=== PATIENT | female | born 1930 | race Caucasian/White ===

== ENCOUNTER 2020-03-04 05:49 | Inpatient (IN) | payer MEDICARE ==
[2020-02-27 16:37] LABS: BASOPHILS # (AUTO) 0.1 X10'3 (0-0.2); BASOPHILS % (AUTO) 1.4 % (0-1); EOSINOPHILS # (AUTO) 0.4 X10'3 (0-0.9); EOSINOPHILS % (AUTO) 6.6 % (0-6); LYMPHOCYTES # (AUTO) 1.7 X10'3 (1.1-4.8); LYMPHOCYTES % (AUTO) 26.7 % (21-51); MEAN CORPUSCULAR HEMOGLOBIN 31.1 PG (27.0-31.0); MEAN CORPUSCULAR HGB CONC 33.4 g/dL (33.0-36.5); MEAN CORPUSCULAR VOLUME 93.3 FL (78-98); MEAN PLATELET VOLUME 8.7 FL (7.4-10.4); MONOCYTES # (AUTO) 0.4 X10'3 (0-0.9); MONOCYTES % (AUTO) 6.9 % (2-12); NEUTROPHILS # (AUTO) 3.6 X10'3 (1.8-7.7); NEUTROPHILS % (AUTO) 58.4 % (42-75); PRE OP HEMOGLOBIN 12.7 g/dL (12.0-16.0); PRE OP PLATELET COUNT 375 X10'3 (140-440); RED BLOOD COUNT 4.07 X10'6 (4.20-5.60); RED CELL DISTRIBUTION WIDTH 14.6 % (11.5-14.5)
[2020-02-27 16:55] LABS: PRE OP INR 1.3 INR; PRE OP PROTIME 13.5 SECONDS (9.0-12.0)
[2020-02-27 17:02] LABS: HEMOGLOBIN A1C 6.3 % (4.5-6.2)
[2020-02-27 17:09] LABS: ALBUMIN 3.6 G/DL (3.4-5.0); ALBUMIN/GLOBULIN RATIO 1.2 (1.1-1.5); ALKALINE PHOSPHATASE 37 IU/L (46-116); BLOOD UREA NITROGEN 17 MG/DL (7-18); BUN/CREATININE RATIO 17.9 (6.6-38.0); CALCIUM 8.8 MG/DL (8.5-10.1); CHLORIDE 106 MMOL/L (99-107); CREATININE 0.95 MG/DL (0.40-0.90); PRE OP ALT 17 U/L (30-65); PRE OP ANION GAP 11 (8-16); PRE OP AST 16 U/L (10-37); PRE OP BILIRUB, TOTAL 0.5 MG/DL (0.0-1.0); PRE OP GLUCOSE 131 MG/DL (70-104); PRE OP POTASSIUM 3.7 MMOL/L (3.4-5.1); PRE OP SODIUM 147 MMOL/L (135-145); TOTAL CARBON DIOXIDE 30.1 MMOL/L (24-32); TOTAL PROTEIN 6.6 G/DL (6.4-8.2); eGFR 56 ML/MIN
[~2020-03-04] VITALS: Ht 154.9 cm; Wt 83.5 kg
[2020-03-04] VITALS (17 sets, daily range): BP systolic 95–145; BP diastolic 36–78
[~2020-03-04 05:49] MED LIST: ACET-1025 PO; ALBU8.5H8 IH; DOCU-267 PO; LEVO50TA8 PO; RIVA15TA PO; acetaminophen 325mg tablet PO ONE; ceFAZolin 2gm in dextrose, iso 50 ML IV ONE; celeCOXIB 100mg capsule PO ONE; famotidine 20mg tablet PO ONE; gabapentin 300mg capsule PO ONE; metoclopramide 5 mg/ml inj IV ONE; oxyCODONE SR 10mg (sust. release) tab -2 tabs (20mg) PO ONE; ringers solution, lacted 1,000 ML IV SCH; tranexamic acid inj. 1,000 MG in normal saline 100 ML IV ONE; vancomycin 1,500 MG in NS 500ml IV soln IV ONE
[2020-03-04] MEDS ORDERED: LIDOcaine 1% (10mg/ml) 2ml vial ONE (06:22)
[2020-03-04] MEDS ORDERED: ringers solution, lacted 1,000 ML IV SCH (06:47)
[2020-03-04] MEDS ORDERED: fentaNYL/PF 50MCG/1 ML 2ML syringe ONE (06:50)
[2020-03-04] MEDS ORDERED: ondansetron/PF 4mg/2ml inj IV PRN ×2 (06:50→07:05)
[2020-03-04] MEDS ORDERED: morphine 4 MG/ML inj SYRINge IV PRN (06:50)
[2020-03-04] MEDS ORDERED: enalaprilat dihydrate 2.5mg/2ml vial IV PRN (06:50)
[2020-03-04] MEDS ORDERED: MIDAZolam 1mg/ml 10ml vial ONE (06:50)
[2020-03-04] MEDS ORDERED: hydrALAZINE 20mg/ml inj. IV PRN (06:50)
[2020-03-04] MEDS ORDERED: fentaNYL/PF 50MCG/1 ML 2ML syringe IV PRN ×2 (06:50)
[2020-03-04] MEDS ORDERED: morphine 2 MG/ML inj. syringe IV PRN (06:50)
[2020-03-04] MEDS ORDERED: phenylephrine 10mg/ml inj. ONE (07:04)
[2020-03-04] MEDS ORDERED: dexamethasone sod phosphate 10mg/ml inj ONE (07:04)
[2020-03-04] MEDS ORDERED: BUPIVAcaine/dex-water/PF 7.5 mg/ml 2ml ampul ONE (07:04)
[2020-03-04] MEDS ORDERED: HYDROmorphone inj. 0.5 MG/0.5 ML DISP.SYRIN IV PRN (07:05)
[2020-03-04] MEDS ORDERED: diphenhydrAMINE 25mg capsule PO PRN ×2 (07:05)
[2020-03-04] MEDS ORDERED: bisacodyl 10mg suppository rectal RC PRN (07:05)
[2020-03-04] MEDS ORDERED: HYDROcodone/acetaminophen 10/325mg tab PO PRN (07:05)
[2020-03-04] MEDS ORDERED: HYDROmorphone 1 mg/ml syringe IV PRN (07:05)
[2020-03-04] MEDS ORDERED: acetaminophen 325mg tablet PO PRN (07:05)
[2020-03-04] MEDS ORDERED: albumin (Human) 5% 250ml 250 ML IV ONE ×4 (07:24→07:45)
[2020-03-04] MEDS ORDERED: cloNIDine hcl/PF 100mcg/ml inj IJ ONE (08:10)
[2020-03-04] MEDS ORDERED: ketorolac trometh. 30mg/ml inj. IM ONE (08:11)
[2020-03-04] MEDS ORDERED: ROPIVAcaine 0.5% (5mg/ml) 30ml vial IJ ONE (08:12)
--- NOTE | 2020-03-04 08:35 | NUR ---
Received from OR via BED , accompanied by Anesthesiologist DR FELIX and report given by Anesthesiolgist. PATIENT WAKING UP, DENIES PAIN, V/S WNL, NEUROVASCULAR CHECKS INTACT, 20G PIV LUE , ZEB DRESSING TO RIGHT HIP CDI W/ COLD POWDER PACK AND SENSATION T-10.
--- NOTE | 2020-03-04 09:14 | NUR ---
received report from ted glasgow
--- NOTE | 2020-03-04 09:25 | NUR ---
PATIENT A&OX4, DENIES PAIN, V/S WNL, NEUROVASCULAR CHECKS INTACT, 18G PIV LUE , ZEB DRESSING TO RIGHT HIP CDI W/ COLD POWDER PACK AND SENSATION T-11. . PATIENT TAKEN TO WITH ALL BELONGINGS AND HOOKED UP TO MONITORS IN ROOM AND REPORT GIVEN TO ESTIMATOR PRINTING WHO HAS TAKEN OVER PATIENT CARE.
[2020-03-04] MEDS: multivitamins, therapeutics tablet PO SCH (09:55)
[2020-03-04] MEDS: gabapentin 300mg capsule PO SCH ×3 (09:55→20:17)
[2020-03-04] MEDS: ascorbic acid 500mg tablet PO SCH ×2 (09:56→20:18)
[2020-03-04] MEDS ORDERED: TRANEXAMIC ACID IV ONE (11:30)
[2020-03-04] MEDS ORDERED: NORMAL SALINE IV ONE (11:30)
[2020-03-04] MEDS: cefazolin/dext.iso 2gm/50ml 50 ML IV SCH (15:45)
[2020-03-04] MEDS ORDERED: cefazolin/dext.iso 2gm/100ml 100 ML IV SCH (16:00)
[2020-03-04] MEDS ORDERED: VANCOMYCIN 1,500MG inj. 1,500 MG in normal saline 500ml IV soln 500 ML IV SCH (18:00)
--- NOTE | 2020-03-04 18:15 | NUR ---
RECEIVED REPORT FROM ODIN SANTOS AND ASSUMED PATIENT CARE
--- NOTE | 2020-03-04 18:16 | NUR ---
gave report to ted jerez
[2020-03-04] MEDS: HYDROcodone/acetaminophen 10/325mg tab PO PRN (20:15)
[2020-03-04] MEDS: potassium cl 20mEq in 1/2 NS 1,000 ML IV SCH ×3 (20:17→23:05)
[2020-03-04] MEDS: sennosides 8.6mg tablet PO SCH (20:18)
[2020-03-04] MEDS: rivaroxaban 15mg tablet PO SCH (20:18)
[2020-03-05] MEDS: cefazolin/dext.iso 2gm/50ml 50 ML IV SCH (00:08)
[2020-03-05] MEDS: HYDROcodone/acetaminophen 10/325mg tab PO PRN ×2 (01:39→05:26)
[2020-03-05 02:00] VITALS: BP 107/38
[2020-03-05 06:00] VITALS: BP 116/42
[2020-03-05] MEDS ORDERED: scopolamine 1.5mg patch.TD72 TD ONE (06:20)
[2020-03-05] MEDS: potassium cl 20mEq in 1/2 NS 1,000 ML IV SCH (07:05)
[2020-03-05 07:16] LABS: ANION GAP 6 (8-16); CHLORIDE 107 MMOL/L (99-107); POTASSIUM 4.5 MMOL/L (3.5-5.1); SODIUM 143 MMOL/L (135-145)
[2020-03-05] MEDS: ascorbic acid 500mg tablet PO SCH ×2 (07:23→19:29)
[2020-03-05] MEDS: traMADol 50MG tablet PO PRN ×3 (07:24→19:29)
[2020-03-05] MEDS: gabapentin 300mg capsule PO SCH ×3 (07:24→19:29)
[2020-03-05] MEDS: levoTHYROXINE 25mcg tablet PO SCH (07:25)
[2020-03-05] MEDS: multivitamins, therapeutics tablet PO SCH (07:25)
[2020-03-05 07:27] LABS: BASOPHILS % (AUTO) 0.4 % (0-1); EOSINOPHILS # (AUTO) 0.3 X10'3 (0-0.9); EOSINOPHILS % (AUTO) 4.5 % (0-6); HEMATOCRIT 31.9 % (35.0-45.0); HEMOGLOBIN 10.7 g/dl (12.0-16.0); LYMPHOCYTES # (AUTO) 0.9 X10'3 (1.1-4.8); LYMPHOCYTES % (AUTO) 15.7 % (21-51); MEAN CORPUSCULAR HEMOGLOBIN 31.7 PG (27.0-31.0); MEAN CORPUSCULAR HGB CONC 33.4 g/dL (33.0-36.5); MEAN PLATELET VOLUME 9.1 FL (7.4-10.4); MONOCYTES # (AUTO) 0.3 X10'3 (0-0.9); MONOCYTES % (AUTO) 4.8 % (2-12); NEUTROPHILS # (AUTO) 4.4 X10'3 (1.8-7.7); NEUTROPHILS % (AUTO) 74.6 % (42-75); PLATELET COUNT 286 X10'3 (140-440); RED BLOOD COUNT 3.36 X10'6 (4.20-5.60); RED CELL DISTRIBUTION WIDTH 14.6 % (11.5-14.5); WHITE BLOOD COUNT 5.9 X10'3 (4.5-11.0)
[2020-03-05 10:00] VITALS: BP 110/35
--- NOTE | 2020-03-05 12:37 | NUR ---
Joint replacement consult: Pt seen by CHRISTOPHER for written/verbal high protein ed w/ RD contact information provided. Pt declines additional protein needs at this time. Addendum: 03/05/20 at [address] Amended: Links added.
[2020-03-05 14:00] VITALS: BP 114/46
[2020-03-05 18:00] VITALS: BP 138/47
--- NOTE | 2020-03-05 18:13 | NUR ---
Problems reprioritized. Patient report given, questions answered & plan of care reviewed with Kristy SANTOS.
--- NOTE | 2020-03-05 18:15 | NUR ---
RECEIVED REPORT FROM EHRNÁN SANTOS AND ASSUMED PATIENT CARE
[2020-03-05] MEDS: sennosides 8.6mg tablet PO SCH (19:30)
[2020-03-05] MEDS: rivaroxaban 15mg tablet PO SCH (19:30)
[2020-03-06] MEDS: traMADol 50MG tablet PO PRN ×4 (05:31→23:13)
[2020-03-06 06:00] VITALS: BP 121/43
--- NOTE | 2020-03-06 06:02 | NUR ---
REPORT GIVEN TO HERNÁN SANTOS
[2020-03-06 06:46] LABS: BASOPHILS % (AUTO) 0.3 % (0-1); EOSINOPHILS # (AUTO) 0.4 X10'3 (0-0.9); EOSINOPHILS % (AUTO) 4.1 % (0-6); HEMOGLOBIN 11.3 g/dl (12.0-16.0); LYMPHOCYTES # (AUTO) 1.5 X10'3 (1.1-4.8); MEAN CORPUSCULAR HEMOGLOBIN 31.4 PG (27.0-31.0); MEAN CORPUSCULAR HGB CONC 33.2 g/dL (33.0-36.5); MEAN CORPUSCULAR VOLUME 94.7 FL (78-98); MEAN PLATELET VOLUME 9.4 FL (7.4-10.4); MONOCYTES # (AUTO) 0.6 X10'3 (0-0.9); MONOCYTES % (AUTO) 6.6 % (2-12); NEUTROPHILS # (AUTO) 6.8 X10'3 (1.8-7.7); PLATELET COUNT 353 X10'3 (140-440); RED BLOOD COUNT 3.59 X10'6 (4.20-5.60); RED CELL DISTRIBUTION WIDTH 14.7 % (11.5-14.5); WHITE BLOOD COUNT 9.3 X10'3 (4.5-11.0)
[2020-03-06] MEDS: levoTHYROXINE 25mcg tablet PO SCH (07:49)
[2020-03-06] MEDS: ascorbic acid 500mg tablet PO SCH ×2 (07:49→18:49)
[2020-03-06] MEDS: gabapentin 300mg capsule PO SCH ×3 (07:49→20:32)
[2020-03-06] MEDS: multivitamins, therapeutics tablet PO SCH (07:49)
[2020-03-06] MEDS ORDERED: docusate sod 100mg capsule PO ONE (07:55)
[2020-03-06 10:00] VITALS: BP 119/47
[2020-03-06 18:00] VITALS: BP 148/51
--- NOTE | 2020-03-06 18:28 | NUR ---
Problems reprioritized. Patient report given, questions answered & plan of care reviewed with Jesika SANTOS.
--- NOTE | 2020-03-06 18:33 | NUR ---
Patient in room ORTH[facility] 4021. I have received report from Eloina SANTOS and had the opportunity to ask questions and assume patient care.
[2020-03-06] MEDS: rivaroxaban 15mg tablet PO SCH (18:48)
[2020-03-06] MEDS: sennosides 8.6mg tablet PO SCH (20:32)
[2020-03-06] MEDS: magnesium hydroxide 30ml (MOM) UD suspension PO PRN (20:33)
[2020-03-06 22:00] VITALS: BP 117/52
[2020-03-07] MEDS: traMADol 50MG tablet PO PRN ×3 (04:19→18:34)
[2020-03-07 06:00] VITALS: BP 124/49
--- NOTE | 2020-03-07 06:29 | NUR ---
Problems reprioritized. Patient report given, questions answered & plan of care reviewed with Eloina SANTOS.
[2020-03-07 07:02] LABS: BASOPHILS % (AUTO) 0.6 % (0-1); EOSINOPHILS # (AUTO) 0.4 X10'3 (0-0.9); EOSINOPHILS % (AUTO) 5.8 % (0-6); HEMATOCRIT 30.2 % (35.0-45.0); HEMOGLOBIN 10.2 g/dl (12.0-16.0); LYMPHOCYTES # (AUTO) 1.4 X10'3 (1.1-4.8); LYMPHOCYTES % (AUTO) 21.5 % (21-51); MEAN CORPUSCULAR HEMOGLOBIN 32.2 PG (27.0-31.0); MEAN CORPUSCULAR VOLUME 94.9 FL (78-98); MEAN PLATELET VOLUME 9.3 FL (7.4-10.4); MONOCYTES # (AUTO) 0.5 X10'3 (0-0.9); MONOCYTES % (AUTO) 7.8 % (2-12); NEUTROPHILS # (AUTO) 4.3 X10'3 (1.8-7.7); NEUTROPHILS % (AUTO) 64.3 % (42-75); PLATELET COUNT 305 X10'3 (140-440); RED BLOOD COUNT 3.18 X10'6 (4.20-5.60); RED CELL DISTRIBUTION WIDTH 14.7 % (11.5-14.5); WHITE BLOOD COUNT 6.7 X10'3 (4.5-11.0)
[2020-03-07] MEDS: levoTHYROXINE 25mcg tablet PO SCH (07:08)
[2020-03-07] MEDS: gabapentin 300mg capsule PO SCH ×3 (07:10→19:46)
[2020-03-07] MEDS: ascorbic acid 500mg tablet PO SCH ×2 (07:10→19:46)
[2020-03-07] MEDS: multivitamins, therapeutics tablet PO SCH (07:10)
--- NOTE | 2020-03-07 09:17 | NUR ---
Problems reprioritized. Patient report given, questions answered & plan of care reviewed with Louise SANTOS.
--- NOTE | 2020-03-07 09:29 | NUR ---
Patient in room ORTH[facility] 4021. I have received report from Eloina SANTOS and had the opportunity to ask questions and assume patient care.
--- NOTE | 2020-03-07 09:45 | NUR ---
I have reviewed and agree with the assessments documented Alfredo SANTOS
[2020-03-07 10:00] VITALS: BP 135/44
[2020-03-07] MEDS: magnesium hydroxide 30ml (MOM) UD suspension PO PRN (15:12)
--- NOTE | 2020-03-07 17:11 | NUR ---
Student documentation: I have reviewed all interventions, assessments performed and documented by Christianne Student Nurse.
[2020-03-07 18:00] VITALS: BP 118/37
--- NOTE | 2020-03-07 18:20 | NUR ---
Patient in room ORTHO 4021. I have received report from TOM Gil and had the opportunity to ask questions and assume patient care.
[2020-03-07] MEDS: rivaroxaban 15mg tablet PO SCH (18:21)
--- NOTE | 2020-03-07 18:26 | NUR ---
Problems reprioritized. Patient report given, questions answered & plan of care reviewed with Paris SANTOS.
[2020-03-07] MEDS: sennosides 8.6mg tablet PO SCH (19:47)
[2020-03-07 22:00] VITALS: BP 136/41
[2020-03-08] MEDS: traMADol 50MG tablet PO PRN ×2 (02:05→07:17)
[2020-03-08 06:00] VITALS: BP 124/39
--- NOTE | 2020-03-08 06:25 | NUR ---
Patient in room ORTHO 4021. I have received report from Paris and had the opportunity to ask questions and assume patient care.
--- NOTE | 2020-03-08 06:31 | NUR ---
Problems reprioritized. Patient report given, questions answered & plan of care reviewed with TOM Thomson.
[2020-03-08] MEDS: levoTHYROXINE 25mcg tablet PO SCH (08:04)
[2020-03-08] MEDS: multivitamins, therapeutics tablet PO SCH (08:04)
[2020-03-08] MEDS: gabapentin 300mg capsule PO SCH (08:04)
[2020-03-08] MEDS: ascorbic acid 500mg tablet PO SCH (08:04)
[2020-03-08 10:42] VITALS: BP 125/47
--- NOTE | 2020-03-08 13:20 | NUR ---
Patient report given, questions answered & plan of care reviewed with Hyacinth Pierre.
== END 2020-03-08 13:30 | DRG 470 ==
LOC: PAS 05:49 → ORTHO 4S 05:50 → UNDOADMIN 05:50 → ORTHO 4S 07:05
PROVIDERS: ADMIT Orthopaedic Surgery; ATTEND Orthopaedic Surgery
PROC: 0SR906Z Replacement of Right Hip Joint with Oxidized Zirconium on Polyethylene Synthetic Substitute, Open Approach (ICD-10-PCS; principal; 2020-03-04 07:04)
PROC: 5A09357 Assistance with Respiratory Ventilation, Less than 24 Consecutive Hours, Continuous Positive Airway Pressure (ICD-10-PCS; 2020-03-06)
DX: M16.11 Unilateral primary osteoarthritis, right hip (principal); D62 Acute posthemorrhagic anemia; E66.9 Obesity, unspecified; J44.9 Chronic obstructive pulmonary disease, unspecified; R11.0 Nausea; N18.3 Chronic kidney disease, stage 3 (moderate); Z60.2 Problems related to living alone; I50.9 Heart failure, unspecified; E03.9 Hypothyroidism, unspecified; Z79.82 Long term (current) use of aspirin; Z68.34 Body mass index [BMI] 34.0-34.9, adult
CPT/HCPCS: 36415; 71046; 72170; 80051; 80053; 82948; 83036; 84443; 85025; 85610; 85730; 86885; 86900; 86901; 87081; 97110; 97116; 97161; 97530; 97535; A4615; A7000; C1776; G0378; J0735; J1100; J1885; J2001; J2250; J2370; J2765; J2795; J3010; J3370; J3480; J3490; J7040; J7120; P9045